=== PATIENT | female | born 1990 | race Caucasian/White ===

== ENCOUNTER 2016-12-04 18:44 | Emergency (ER) | payer MEDICAID ==
[~2016-12-04] VITALS: Ht 154.9 cm; Wt 98.0 kg
[~2016-12-04 18:44] MED LIST: AMOXICILLIN500 M2 PO; AMOXICILLIN500 MG PO; AMOXIL500 MG PO; ANAPROX DS550 MG PO; ATIVAN1 MG PO; AUGMENTIN 875 M1 TAB PO; BACTRIM DS 8001 TA1 PO; CIPRODEX 0.3%-7.5 ML OT; CLEOCIN150 MG PO; EFFEXOR75 MG PO; HYDROCODONE BIT1 T11 PO; IBUPROFEN600 MG PO; IRON325 M1 PO; MIRENA52 MG IU; MOTRIN 600 MG E4 TAB PO; MOTRIN 800 MG E4 TAB PO; MOTRIN800 MG PO; NAPROSYN500 MG PO; NKHM; PHENERGAN12.5 M1 PO; PRENATAL1 TA1 PO; PRENATAL1 TA7 PO; PYRIDIUM200 M1 PO; PYRIDIUM200 MG PO; Peridex 473 ML473 ML PO; TRAMADOL HCL50 MG PO; TYLENOL W/CODEI1 TA2 PO; ZITHROMAX Z PA250 MG PO; ZITHROMAX250 MG PO; ZOFRAN ODT4 MG SL
[2016-12-04] MEDS ORDERED: Peridex 473 ML473 ML PO (19:37)
[2016-12-04] MEDS ORDERED: LIDOCAINE HCL100 M1 MM (19:37)
[2016-12-04] MEDS ORDERED: NAPROSYN500 MG PO (19:37)
== END 2016-12-04 19:31 | disposition home or self-care (01) ==
LOC: ED 18:44
DX: K08.89 Other specified disorders of teeth and supporting structures (principal); R03.0 Elevated blood-pressure reading, without diagnosis of hypertension; F17.200 Nicotine dependence, unspecified, uncomplicated; F32.9 Major depressive disorder, single episode, unspecified; Z88.1 Allergy status to other antibiotic agents

== ENCOUNTER 2016-12-06 23:10 | Emergency (ER) | payer MEDICAID ==
[~2016-12-06] VITALS: Ht 154.9 cm; Wt 98.0 kg
[~2016-12-06 23:10] MED LIST changes: +LIDOCAINE HCL100 M1 MM
[2016-12-07 01:16] LABS: BILIRUBIN NEGATIVE (NEGATIVE); BLOOD NEGATIVE (NEGATIVE); CLARITY SL CLOUDY (CLEAR); COLOR YELLOW (YELLOW); GLUCOSE NEGATIVE (NEGATIVE); KETONE NEGATIVE (NEGATIVE); LEUKO ESTERASE TRACE (NEGATIVE); NITRITE NEGATIVE (NEGATIVE); PH 6.5 (5.0-9.0); PROTEIN NEGATIVE (NEGATIVE); UROBILINOGEN 0.2 E.U./dl (0.2-1.0)
[2016-12-07 01:24] LABS: EPITHELIAL CELLS TNTC
[2016-12-07 01:25] LABS: URINE REFLEX COMMENT YES (NO)
== END 2016-12-07 03:25 | disposition home or self-care (01) ==
LOC: ED 23:10
PROVIDERS: Nurse Practitioner Family
DX: R10.12 Left upper quadrant pain (principal); F17.200 Nicotine dependence, unspecified, uncomplicated; F32.9 Major depressive disorder, single episode, unspecified; Z88.1 Allergy status to other antibiotic agents

== ENCOUNTER → 2017-01-27 | Outpatient (CLI) | payer OTHER ==
[2017-01-27 10:39] LABS: BASO # 0.1 10*3/uL (0.0-0.1); BASO % 0.7 % (0.0-1.0); EOS # 0.3 10*3/uL (0.0-0.4); EOS % 3.7 % (1.0-4.0); HEMATOCRIT 41.5 % (37.0-47.0); HEMOGLOBIN 14.2 g/dl (12.0-16.0); LYMPH # 3.6 10*3/uL (1.3-4.4); LYMPH % 42.5 % (27.0-41.0); MEAN CELL VOLUME 81.5 fl (81.0-99.0); MEAN CORPUSCULAR HGB 27.9 pg (27.0-31.0); MEAN CORPUSCULAR HGB CONC 34.2 g/dl (33.0-37.0); MEAN PLATELET VOLUME 8.4 fl (9.6-12.3); MONO # 0.4 10*3/uL (0.1-1.0); MONO % 4.2 % (3.0-9.0); NEUT # 4.1 10*3/uL (2.3-7.9); NEUT % 48.7 % (47.0-73.0); PLATELET COUNT AUTOMATED 388 10*3/uL (130-400); RED BLOOD COUNT 5.09 10*6/uL (4.10-5.10); RED CELL DISTRI WIDTH 12.5 % (0-14.5); WHITE BLOOD COUNT 8.5 10*3/uL (4.8-10.8)
[2017-01-27 10:57] LABS: HEMOGLOBIN A1c 5.4 % (4.8-5.6)
[2017-01-27 11:14] LABS: ALBUMIN 3.7 gm/dl (3.1-4.5); BILIRUBIN, TOTAL 0.2 mg/dl (0.2-1.0); BUN 12 mg/dl (7-24); CARBON DIOXIDE 25 mmol/L (21-32); CHLORIDE 106 mmol/L (98-107); CHOLESTEROL 177 mg/dL (<200); EST GLOM FILT AFRICAN AMERICAN > 60 ml/min; GLUCOSE 99 mg/dL (65-99); HDL CHOLESTEROL 40 mg/dl (40-60); LDL CHOLESTEROL 95 mg/dL (9-159); POTASSIUM 4.2 mmol/L (3.5-5.1); SGOT/AST 20 IU/L (3-35); SGPT/ALT 47 U/L (12-78); SODIUM 140 mmol/L (136-145); TOTAL PROTEIN 7.8 gm/dL (6.4-8.2); TRIGLYCERIDES 212 mg/dl (<150); VLDL CHOLESTEROL 42 mg/dL (6-40)
[2017-01-27 11:16] LABS: ALKALINE PHOSPHATASE 64 U/L (45-117)
== END | disposition home or self-care (01) ==
LOC: LAB 10:24
PROVIDERS: Family Medicine
DX: R73.9 Hyperglycemia, unspecified (principal); Z68.41 Body mass index [BMI] 40.0-44.9, adult

== ENCOUNTER 2017-03-24 13:11 | Emergency (ER) | payer OTHER ==
[~2017-03-24] VITALS: Ht 154.9 cm; Wt 104.3 kg
[2017-03-24] MEDS ORDERED: CORTISONE + COO28 GM TP (14:21)
[2017-03-24] MEDS ORDERED: BENADRYL ALLERG25 M5 PO (14:21)
== END 2017-03-24 14:31 | disposition home or self-care (01) ==
LOC: ED 13:11
DX: L24.0 Irritant contact dermatitis due to detergents (principal); F17.200 Nicotine dependence, unspecified, uncomplicated; Z88.1 Allergy status to other antibiotic agents

== ENCOUNTER 2017-03-30 22:04 | Emergency (ER) | payer OTHER ==
[~2017-03-30] VITALS: Ht 154.9 cm; Wt 99.8 kg
[~2017-03-30 22:04] MED LIST changes: +BENADRYL ALLERG25 M5 PO; +CORTISONE + COO28 GM TP
[2017-03-30] MEDS ORDERED: ATARAX,VISTARIL50 MG PO (23:28)
[2017-03-30] MEDS ORDERED: PREDNISONE20 M1 PO (23:31)
== END 2017-03-30 23:59 | disposition home or self-care (01) ==
LOC: ED 22:04
DX: L50.9 Urticaria, unspecified (principal); F17.200 Nicotine dependence, unspecified, uncomplicated; F32.9 Major depressive disorder, single episode, unspecified; Z88.1 Allergy status to other antibiotic agents

== ENCOUNTER → 2017-05-01 | Outpatient (CLI) | payer OTHER ==
[~2017-05-01] MED LIST changes: +ATARAX,VISTARIL50 MG PO; +PREDNISONE20 M1 PO
[2017-05-01 12:40] LABS: BILIRUBIN NEGATIVE (NEGATIVE); BLOOD NEGATIVE (NEGATIVE); CLARITY CLEAR (CLEAR); COLOR YELLOW (YELLOW); GLUCOSE NEGATIVE (NEGATIVE); KETONE NEGATIVE (NEGATIVE); LEUKO ESTERASE NEGATIVE (NEGATIVE); NITRITE NEGATIVE (NEGATIVE); PROTEIN NEGATIVE (NEGATIVE); SPECIFIC GRAVITY 1.015 (1.005-1.030); UROBILINOGEN 0.2 E.U./dl (0.2-1.0)
[2017-05-01 12:45] LABS: BACTERIA TRACE; RBC 0-2 rbc/hpf (0-2); WBC 0-2 wbc/hpf (0-5)
[2017-05-01 12:46] LABS: URINE REFLEX COMMENT NO (NO)
[2017-05-01 12:48] LABS: INTERNATIONAL NORM RATIO 0.9 (2.0-3.5)
[2017-05-01 12:50] LABS: ALBUMIN 3.5 gm/dl (3.1-4.5); ALKALINE PHOSPHATASE 63 U/L (45-117); BILIRUBIN, TOTAL 0.2 mg/dl (0.2-1.0); BUN 12 mg/dl (7-24); CARBON DIOXIDE 26 mmol/L (21-32); CHLORIDE 104 mmol/L (98-107); EST GLOM FILT AFRICAN AMERICAN > 60 ml/min; GLUCOSE 144 mg/dL (65-99); POTASSIUM 3.6 mmol/L (3.5-5.1); SGOT/AST 18 IU/L (3-35); SGPT/ALT 42 U/L (12-78); SODIUM 143 mmol/L (136-145); TOTAL PROTEIN 7.6 gm/dL (6.4-8.2)
[2017-05-01 12:51] LABS: BASO % 0.4 % (0.0-1.0); EOS # 0.2 10*3/uL (0.0-0.4); HEMOGLOBIN 13.9 g/dl (12.0-16.0); LYMPH # 2.1 10*3/uL (1.3-4.4); LYMPH % 29.6 % (27.0-41.0); MEAN CELL VOLUME 81.8 fl (81.0-99.0); MEAN CORPUSCULAR HGB 27.7 pg (27.0-31.0); MEAN CORPUSCULAR HGB CONC 33.9 g/dl (33.0-37.0); MEAN PLATELET VOLUME 8.4 fl (9.6-12.3); MONO # 0.3 10*3/uL (0.1-1.0); MONO % 3.9 % (3.0-9.0); NEUT # 4.5 10*3/uL (2.3-7.9); NEUT % 62.7 % (47.0-73.0); PLATELET COUNT AUTOMATED 412 10*3/uL (130-400); RED BLOOD COUNT 5.01 10*6/uL (4.10-5.10); RED CELL DISTRI WIDTH 12.9 % (0-14.5); WHITE BLOOD COUNT 7.2 10*3/uL (4.8-10.8)
[2017-05-03 16:07] LABS: FACTOR X ACTIVITY 086306 150 % (76-183); FACTOR XI ACTIVITY 50 % (60-150); FACTOR XII ACTIVITY 086322 80 % (50-150); VON WILLEBRAND FACTOR AG 101 % (50-200)
[2017-05-03 17:09] LABS: INTERPRETIVE NOTE Note (.)
== END | disposition home or self-care (01) ==
LOC: LAB 11:05
PROVIDERS: Family Medicine
DX: Z01.818 Encounter for other preprocedural examination (principal); Z86.2 Personal history of diseases of the blood and blood-forming organs and certain disorders involving the immune mechanism; Z87.891 Personal history of nicotine dependence

== ENCOUNTER → 2017-05-27 | Outpatient (CLI) | payer OTHER | END | disposition home or self-care (01) | LOC: LAB 13:29 | PROVIDERS: Internal Medicine Hematology & Oncology | DX: R05 Cough (principal); D68.1 Hereditary factor XI deficiency; D66 Hereditary factor VIII deficiency; D68.62 Lupus anticoagulant syndrome; F17.200 Nicotine dependence, unspecified, uncomplicated ==

== ENCOUNTER → 2017-05-28 | Outpatient (CLI) | payer OTHER ==
[2017-05-28 15:26] LABS: INTERNATIONAL NORM RATIO 0.9 (2.0-3.5)
== END | disposition home or self-care (01) ==
LOC: LAB 03:03
PROVIDERS: Internal Medicine Hematology & Oncology
DX: D68.1 Hereditary factor XI deficiency (principal); D68.62 Lupus anticoagulant syndrome

== ENCOUNTER → 2017-07-25 | Outpatient (CLI) | payer OTHER ==
[2017-07-28 17:10] LABS: FACTOR XI ACTIVITY 49 % (60-150); LUPUS DRVVT 62.3 sec (0.0-47.0); PTT-LA 56.3 sec (0.0-51.9)
== END | disposition home or self-care (01) ==
LOC: LAB 15:52
PROVIDERS: Internal Medicine Hematology & Oncology
DX: D69.9 Hemorrhagic condition, unspecified (principal)

== ENCOUNTER 2017-08-03 09:07 | Emergency (ER) | payer OTHER ==
[~2017-08-03] VITALS: Ht 154.9 cm; Wt 102.1 kg
[2017-08-03 09:59] LABS: BASO # 0.1 10*3/uL (0.0-0.1); BASO % 0.8 % (0.0-1.0); EOS # 0.3 10*3/uL (0.0-0.4); EOS % 4.7 % (1.0-4.0); HEMATOCRIT 40.2 % (37.0-47.0); HEMOGLOBIN 13.4 g/dl (12.0-16.0); LYMPH # 1.6 10*3/uL (1.3-4.4); LYMPH % 24.9 % (27.0-41.0); MEAN CELL VOLUME 82.4 fl (81.0-99.0); MEAN CORPUSCULAR HGB 27.5 pg (27.0-31.0); MEAN CORPUSCULAR HGB CONC 33.3 g/dl (33.0-37.0); MEAN PLATELET VOLUME 8.2 fl (9.6-12.3); MONO # 0.4 10*3/uL (0.1-1.0); MONO % 6.1 % (3.0-9.0); NEUT # 4.2 10*3/uL (2.3-7.9); NEUT % 63.2 % (47.0-73.0); PLATELET COUNT AUTOMATED 362 10*3/uL (130-400); RED BLOOD COUNT 4.88 10*6/uL (4.10-5.10); RED CELL DISTRI WIDTH 12.8 % (0-14.5); WHITE BLOOD COUNT 6.6 10*3/uL (4.8-10.8)
[2017-08-03 10:14] LABS: ALBUMIN 3.3 gm/dl (3.1-4.5); ALKALINE PHOSPHATASE 69 U/L (45-117); BUN 11 mg/dl (7-24); CHLORIDE 103 mmol/L (98-107); CREATININE 0.77 mg/dL (0.55-1.02); LIPASE 89 U/L (73-393); POTASSIUM 4.3 mmol/L (3.5-5.1); SGOT/AST 19 IU/L (3-35); SGPT/ALT 42 U/L (12-78); SODIUM 139 mmol/L (136-145); TOTAL PROTEIN 7.6 gm/dL (6.4-8.2)
[2017-08-03 10:19] LABS: BETA-HCG, QUANT < 1.0 mIU/mL (1-3)
[2017-08-03 10:19] LABS: BILIRUBIN NEGATIVE (NEGATIVE); BLOOD NEGATIVE (NEGATIVE); CLARITY CLEAR (CLEAR); COLOR YELLOW (YELLOW); GLUCOSE NEGATIVE (NEGATIVE); KETONE NEGATIVE (NEGATIVE); LEUKO ESTERASE NEGATIVE (NEGATIVE); NITRITE NEGATIVE (NEGATIVE); UROBILINOGEN 0.2 E.U./dl (0.2-1.0)
[2017-08-03 10:26] LABS: BACTERIA 1+; WBC 0-2 wbc/hpf (0-5)
[2017-08-03] MEDS ORDERED: IBUPROFEN600 MG PO (10:50)
== END 2017-08-03 11:11 | disposition home or self-care (01) ==
LOC: ED 09:07
PROVIDERS: Physician Assistant
DX: R10.32 Left lower quadrant pain (principal); R11.0 Nausea; F17.200 Nicotine dependence, unspecified, uncomplicated; Z88.1 Allergy status to other antibiotic agents

== ENCOUNTER → 2017-08-04 | Outpatient (CLI) | payer OTHER | END | disposition home or self-care (01) | LOC: US 08-03 11:30 | DX: N83.202 Unspecified ovarian cyst, left side (principal) ==

== ENCOUNTER → 2017-08-05 | Outpatient (CLI) | payer OTHER ==
[2017-08-05 16:52] LABS: FREE T4 0.98 ng/dl (0.76-1.46)
[2017-08-05 16:57] LABS: THYROID STIM HORMONE (HS) 1.09 uIU/ml (0.358-4.75)
== END | disposition home or self-care (01) ==
LOC: LAB 15:38
PROVIDERS: Specialist
DX: L60.3 Nail dystrophy (principal)

== ENCOUNTER → 2017-09-25 | Outpatient (CLI) | payer OTHER | END | disposition home or self-care (01) | LOC: US 15:00 | DX: M54.9 Dorsalgia, unspecified (principal); Z97.5 Presence of (intrauterine) contraceptive device ==

== ENCOUNTER 2018-01-02 13:41 | Emergency (ER) | payer OTHER ==
[~2018-01-02] VITALS: Ht 154.9 cm; Wt 105.7 kg
== END 2018-01-02 15:45 | disposition home or self-care (01) ==
LOC: ED 13:41
DX: S01.452A Open bite of left cheek and temporomandibular area, initial encounter (principal); F17.200 Nicotine dependence, unspecified, uncomplicated; Z88.1 Allergy status to other antibiotic agents; W54.0XXA Bitten by dog, initial encounter; Y93.89 Activity, other specified; Y92.89 Other specified places as the place of occurrence of the external cause; Y99.9 Unspecified external cause status

== ENCOUNTER 2018-01-15 02:01 | Emergency (ER) | payer OTHER ==
[~2018-01-15] VITALS: Ht 154.9 cm; Wt 104.3 kg
[2018-01-15] MEDS ORDERED: BENADRYL ALLERG25 M5 PO (02:08)
== END 2018-01-15 02:22 | disposition home or self-care (01) ==
LOC: ED 02:01
DX: T78.40XA Allergy, unspecified, initial encounter (principal); Z88.1 Allergy status to other antibiotic agents; X58.XXXA Exposure to other specified factors, initial encounter

== ENCOUNTER 2018-06-17 01:35 | Emergency (ER) | payer OTHER ==
[~2018-06-17] VITALS: Ht 154.9 cm; Wt 104.3 kg
[2018-06-17] MEDS ORDERED: Motrin,Rufen800 MG PO (22:39)
== END 2018-06-17 03:25 | disposition home or self-care (01) ==
LOC: ED 01:35
DX: M25.571 Pain in right ankle and joints of right foot (principal); M79.671 Pain in right foot; Z88.1 Allergy status to other antibiotic agents; X50.1XXA Overexertion from prolonged static or awkward postures, initial encounter; Y93.89 Activity, other specified; Y92.89 Other specified places as the place of occurrence of the external cause; Y99.8 Other external cause status

== ENCOUNTER 2018-06-17 22:20 | Emergency (ER) | payer OTHER ==
[~2018-06-17] VITALS: Ht 154.9 cm; Wt 108.9 kg
[2018-06-17] MEDS ORDERED: Motrin,Rufen800 MG PO (22:39)
== END 2018-06-17 22:54 | disposition home or self-care (01) ==
LOC: ED 22:20
DX: S93.402A Sprain of unspecified ligament of left ankle, initial encounter (principal); Z88.8 Allergy status to other drugs, medicaments and biological substances; W19.XXXA Unspecified fall, initial encounter; Y93.89 Activity, other specified; Y92.89 Other specified places as the place of occurrence of the external cause; Y99.8 Other external cause status

== ENCOUNTER → 2019-06-25 | Outpatient (CLI) | payer OTHER ==
[~2019-06-25] MED LIST changes: +CLASSIC PRENAT1 EACH PO; +Motrin,Rufen800 MG PO; +PROVENTIL HFA6.7 GM INH
== END | disposition home or self-care (01) ==
LOC: US 15:00
DX: Z34.82 Encounter for supervision of other normal pregnancy, second trimester (principal); Z3A.19 19 weeks gestation of pregnancy

== ENCOUNTER → 2019-07-08 | Outpatient (CLI) | payer OTHER | END | disposition home or self-care (01) | LOC: LAB 08:32 | DX: O99.112 Other diseases of the blood and blood-forming organs and certain disorders involving the immune mechanism complicating pregnancy, second trimester (principal); D68.1 Hereditary factor XI deficiency; Z3A.21 21 weeks gestation of pregnancy ==

== ENCOUNTER 2019-07-15 12:39 | Emergency (ER) | payer OTHER ==
[~2019-07-15] VITALS: Wt 102.5 kg
--- NOTE | ~2019-07-15 | EKG ---
[place], [place] ELECTROCARDIOGRAM REPORT NAME: YVON GREEN UNIT #: [id number] ROOM: DOCTOR: EPIPHANY DRAFT REPORT BIRTHDATE: [birth year] [facility] Test Date: 2019-07-15 Test Time: 12:47:06 Pat Name: YVON GREEN Department: Room: Gender: F [employer]: : 1990 Requested By: ARI CHAMORRO Order Number: [id number] Reading MD: Angeles Cortez MD Measurements Intervals [place] Rate: 88 P: 27 AK: 193 QRS: 27 QRSD: 87 T: 21 QT: 321 QTc: 389 Interpretive Statements Sinus rhythm Atrial premature complex No previous ECG available for comparison Electronically Signed On 07-18-2019 7:43:12 PDT by Angeles Cortez MD CM:EKGRPT:ELECTROCARDIOGRAM REPORT [id number] ARI EVRONICA DRAFT REPORT ARI CHAMORRO M.D.
[~2019-07-15 12:39] MED LIST changes: -CLASSIC PRENAT1 EACH PO; -PROVENTIL HFA6.7 GM INH
[2019-07-15 13:16] LABS: BASO % 0.3 % (0.0-1.0); EOS # 0.2 10*3/uL (0.0-0.4); EOS % 1.9 % (1.0-4.0); HEMATOCRIT 33.9 % (37.0-47.0); HEMOGLOBIN 11.4 g/dl (12.0-16.0); LYMPH # 1.8 10*3/uL (1.3-4.4); MEAN CELL VOLUME 82.3 fl (81.0-99.0); MEAN CORPUSCULAR HGB 27.7 pg (27.0-31.0); MEAN CORPUSCULAR HGB CONC 33.6 g/dl (33.0-37.0); MEAN PLATELET VOLUME 8.6 fl (9.6-12.3); MONO # 0.5 10*3/uL (0.1-1.0); NEUT # 8.1 10*3/uL (2.3-7.9); NEUT % 75.3 % (47.0-73.0); PLATELET COUNT AUTOMATED 318 10*3/uL (130-400); RED BLOOD COUNT 4.12 10*6/uL (4.10-5.10); RED CELL DISTRI WIDTH 13.1 % (0-14.5); WHITE BLOOD COUNT 10.7 10*3/uL (4.8-10.8)
[2019-07-15] MEDS ORDERED: CLASSIC PRENAT1 EACH PO (13:26)
[2019-07-15 13:31] LABS: ACT PARTIAL THROMBO TIME 31.6 SECONDS (20.0-32.1); INTERNATIONAL NORM RATIO 0.9 (2.0-3.5)
[2019-07-15 13:34] LABS: ALBUMIN 2.6 gm/dl (3.1-4.5); ALKALINE PHOSPHATASE 64 U/L (45-117); BUN 4 mg/dl (7-24); CHLORIDE 106 mmol/L (98-107); CREATININE 0.45 mg/dL (0.55-1.02); POTASSIUM 3.8 mmol/L (3.5-5.1); SGOT/AST 6 IU/L (3-35); SGPT/ALT 13 U/L (12-78); SODIUM 134 mmol/L (136-145); TOTAL PROTEIN 6.8 gm/dL (6.4-8.2)
[2019-07-15 13:40] LABS: TROPONIN I < 0.015 ng/ml (<0.045)
[2019-07-15 14:36] LABS: BILIRUBIN NEGATIVE (NEGATIVE); BLOOD 1+ (NEGATIVE); CLARITY CLEAR (CLEAR); COLOR YELLOW (YELLOW); GLUCOSE NEGATIVE (NEGATIVE); KETONE NEGATIVE (NEGATIVE); LEUKO ESTERASE NEGATIVE (NEGATIVE); NITRITE NEGATIVE (NEGATIVE); PH 7.5 (5.0-9.0); UROBILINOGEN 0.2 E.U./dl (0.2-1.0)
[2019-07-15 14:53] LABS: BACTERIA TRACE; WBC 0-2 wbc/hpf (0-5)
[2019-07-15] MEDS ORDERED: PROVENTIL HFA6.7 GM INH (17:22)
[2019-07-15] MEDS ORDERED: AMOXICILLIN500 M2 PO (17:53)
== END 2019-07-15 17:29 | disposition home or self-care (01) ==
LOC: ED 12:39
PROVIDERS: Emergency Medicine
DX: O99.512 Diseases of the respiratory system complicating pregnancy, second trimester (principal); O21.9 Vomiting of pregnancy, unspecified; J45.909 Unspecified asthma, uncomplicated; Z3A.22 22 weeks gestation of pregnancy; Z79.899 Other long term (current) drug therapy; Z88.1 Allergy status to other antibiotic agents

== ENCOUNTER → 2019-07-19 | Outpatient (CLI) | payer OTHER ==
[~2019-07-19] MED LIST changes: +CLASSIC PRENAT1 EACH PO; +PROVENTIL HFA6.7 GM INH
== END | disposition home or self-care (01) ==
LOC: US 01:09
DX: Z34.82 Encounter for supervision of other normal pregnancy, second trimester (principal); Z3A.21 21 weeks gestation of pregnancy

== ENCOUNTER → 2019-08-20 | Outpatient (CLI) | payer OTHER | END | disposition home or self-care (01) | LOC: D 10:22 | DX: O24.419 Gestational diabetes mellitus in pregnancy, unspecified control (principal); Z3A.28 28 weeks gestation of pregnancy ==

== ENCOUNTER → 2019-10-19 | Outpatient (CLI) | payer OTHER ==
[2019-10-19 14:07] LABS: BILIRUBIN NEGATIVE (NEGATIVE); BLOOD NEGATIVE (NEGATIVE); CLARITY SL CLOUDY (CLEAR); COLOR YELLOW (YELLOW); GLUCOSE NEGATIVE (NEGATIVE); KETONE NEGATIVE (NEGATIVE); LEUKO ESTERASE NEGATIVE (NEGATIVE); NITRITE NEGATIVE (NEGATIVE); UROBILINOGEN 0.2 E.U./dl (0.2-1.0)
[2019-10-19 14:15] LABS: URINE AMPHETAMINES < 1000 (1000ng/ml); URINE BARBITURATES < 200 (200ng/ml); URINE BENZODIAZEPINES < 200 (200ng/ml); URINE CANNABINOIDS (THC) > 50 (50ng/ml); URINE COCAINE < 300 (300ng/ml); URINE METHADONE < 300 (300ng/ml); URINE OPIATES < 300 (300ng/ml)
[2019-10-19 14:16] LABS: URINE PHENCYCLIDINE < 25 (25ng/ml)
[2019-10-19 14:18] LABS: EPITHELIAL CELLS 16-20
[2019-10-19 14:26] LABS: BASO % 0.4 % (0.0-1.0); EOS # 0.1 10*3/uL (0.0-0.4); EOS % 0.9 % (1.0-4.0); HEMATOCRIT 39.1 % (37.0-47.0); HEMOGLOBIN 12.9 g/dl (12.0-16.0); LYMPH # 2.4 10*3/uL (1.3-4.4); LYMPH % 24.7 % (27.0-41.0); MEAN CELL VOLUME 81.3 fl (81.0-99.0); MEAN CORPUSCULAR HGB 26.8 pg (27.0-31.0); MEAN PLATELET VOLUME 9.1 fl (9.6-12.3); MONO # 0.3 10*3/uL (0.1-1.0); MONO % 3.4 % (3.0-9.0); NEUT # 6.7 10*3/uL (2.3-7.9); PLATELET COUNT AUTOMATED 325 10*3/uL (130-400); RED BLOOD COUNT 4.81 10*6/uL (4.10-5.10); RED CELL DISTRI WIDTH 14.5 % (0-14.5); WHITE BLOOD COUNT 9.6 10*3/uL (4.8-10.8)
[2019-10-19 14:40] LABS: ALBUMIN 2.5 gm/dl (3.1-4.5); ALKALINE PHOSPHATASE 113 U/L (45-117); BUN 8 mg/dl (7-24); CHLORIDE 108 mmol/L (98-107); POTASSIUM 4.3 mmol/L (3.5-5.1); SGOT/AST 14 IU/L (3-35); SGPT/ALT 16 U/L (12-78); SODIUM 138 mmol/L (136-145); TOTAL PROTEIN 6.9 gm/dL (6.4-8.2); URIC ACID 4.6 mg/dL (2.6-6.0)
[2019-10-19 14:53] LABS: ACT PARTIAL THROMBO TIME 31.4 SECONDS (20.0-32.1); INTERNATIONAL NORM RATIO 0.9 (2.0-3.5)
== END | disposition home or self-care (01) ==
LOC: LAB 13:33
PROVIDERS: Obstetrics & Gynecology Maternal & Fetal Medicine
DX: O16.3 Unspecified maternal hypertension, third trimester (principal); Z3A.36 36 weeks gestation of pregnancy

== ENCOUNTER → 2020-06-12 | Outpatient (CLI) | payer OTHER ==
[2020-06-15 03:09] LABS: DILUTE PROTHROMBIN TIME 34.5 sec (0.0-55.0); LUPUS DRVVT 45.1 sec (0.0-47.0); PTT-LA 45.6 sec (0.0-51.9); THROMBIN TIME 15.7 sec (0.0-23.0)
[2020-06-15 04:11] LABS: LUPUS REFLEX INTERPRETATION Comment: (.)
== END | disposition home or self-care (01) ==
LOC: LAB 08:14
PROVIDERS: Obstetrics & Gynecology
DX: O24.419 Gestational diabetes mellitus in pregnancy, unspecified control (principal); O99.119 Other diseases of the blood and blood-forming organs and certain disorders involving the immune mechanism complicating pregnancy, unspecified trimester; O26.899 Other specified pregnancy related conditions, unspecified trimester; D68.1 Hereditary factor XI deficiency; D68.62 Lupus anticoagulant syndrome; Z39.2 Encounter for routine postpartum follow-up; Z3A.00 Weeks of gestation of pregnancy not specified

== ENCOUNTER 2020-06-17 13:51 | Emergency (ER) | payer OTHER ==
[2020-06-17 14:44] LABS: BILIRUBIN NEGATIVE (NEGATIVE); BLOOD NEGATIVE (NEGATIVE); CLARITY CLEAR (CLEAR); COLOR YELLOW (YELLOW); GLUCOSE NEGATIVE (NEGATIVE); KETONE NEGATIVE (NEGATIVE); LEUKO ESTERASE NEGATIVE (NEGATIVE); NITRITE NEGATIVE (NEGATIVE); PH 6.5 (5.0-9.0); SPECIFIC GRAVITY 1.015 (1.005-1.030); UROBILINOGEN 0.2 E.U./dl (0.2-1.0)
[2020-06-17 14:45] LABS: BACTERIA 1+; EPITHELIAL CELLS 31-40
[2020-06-17] MEDS ORDERED: NAPROSYN500 MG PO (15:01)
[2020-06-17] MEDS ORDERED: METHOCARBAMOL500 M1 PO (15:01)
[2020-06-17] MEDS ORDERED: MEDROL DOSEPAK4 MG PO (15:01)
== END 2020-06-17 15:41 | disposition home or self-care (01) ==
LOC: ED 13:51
PROVIDERS: Nurse Practitioner Family
DX: S39.012A Strain of muscle, fascia and tendon of lower back, initial encounter (principal); I10 Essential (primary) hypertension; F32.9 Major depressive disorder, single episode, unspecified; Z88.8 Allergy status to other drugs, medicaments and biological substances; Z79.899 Other long term (current) drug therapy; X58.XXXA Exposure to other specified factors, initial encounter; Y93.89 Activity, other specified; Y92.89 Other specified places as the place of occurrence of the external cause; Y99.8 Other external cause status

== ENCOUNTER → 2020-08-10 | Outpatient (CLI) | payer OTHER ==
[~2020-08-10] MED LIST changes: +MEDROL DOSEPAK4 MG PO; +METHOCARBAMOL500 M1 PO
== END | disposition home or self-care (01) ==
LOC: COVID19 00:06
PROVIDERS: ATTEND Obstetrics & Gynecology
DX: Z20.828 Contact with and (suspected) exposure to other viral communicable diseases (principal); Z30.2 Encounter for sterilization

== ENCOUNTER → 2020-08-22 | Day surgery (SDC) | payer OTHER ==
[2020-08-10 15:03] VITALS: BP 126/87
[~2020-08-22] VITALS: Ht 154.9 cm; Wt 99.3 kg
== END | disposition home or self-care (01) ==
LOC: SDC 08-10 12:30
PROVIDERS: ATTEND Obstetrics & Gynecology
DX: Z30.2 Encounter for sterilization (principal); I10 Essential (primary) hypertension; Z63.9 Problem related to primary support group, unspecified; F32.9 Major depressive disorder, single episode, unspecified; Z82.49 Family history of ischemic heart disease and other diseases of the circulatory system; Z87.891 Personal history of nicotine dependence; Z88.8 Allergy status to other drugs, medicaments and biological substances

== ENCOUNTER → 2020-09-07 | Outpatient (CLI) | payer OTHER ==
[~2020-09-07] MED LIST changes: +NORCO 5-325 TA1 EACH PO
== END | disposition home or self-care (01) ==
LOC: COVID19 08-17 01:05
PROVIDERS: ATTEND Obstetrics & Gynecology
DX: Z01.818 Encounter for other preprocedural examination (principal); Z20.828 Contact with and (suspected) exposure to other viral communicable diseases

== ENCOUNTER → 2020-09-12 | Day surgery (SDC) | payer OTHER ==
[~2020-09-12] VITALS: Ht 154.9 cm; Wt 97.5 kg
[2020-09-12 08:27] VITALS: BP 150/92
[2020-09-12 08:42] VITALS: BP 130/83
[2020-09-12 08:57] VITALS: BP 134/84
[2020-09-12 09:12] VITALS: BP 130/81
[2020-09-12 09:27] VITALS: BP 124/76
== END ==
LOC: SDC 09-07 08:00
PROVIDERS: ATTEND Obstetrics & Gynecology
DX: Z30.2 Encounter for sterilization (principal); Z64.1 Problems related to multiparity; G43.909 Migraine, unspecified, not intractable, without status migrainosus; E66.9 Obesity, unspecified; I10 Essential (primary) hypertension; E11.9 Type 2 diabetes mellitus without complications; Z79.899 Other long term (current) drug therapy

== ENCOUNTER 2021-05-31 13:34 | Emergency (ER) | payer OTHER ==
[~2021-05-31] VITALS: Ht 154.9 cm; Wt 102.1 kg
[2021-05-31] MEDS ORDERED: METHOCARBAMOL500 M1 PO (16:37)
[2021-05-31] MEDS ORDERED: PREDNISONE20 M1 PO (16:37)
== END 2021-05-31 16:53 | disposition home or self-care (01) ==
LOC: ED 13:34
DX: M79.602 Pain in left arm (principal); F17.200 Nicotine dependence, unspecified, uncomplicated; Z88.1 Allergy status to other antibiotic agents

== ENCOUNTER 2021-07-05 10:14 | Emergency (ER) | payer OTHER ==
[~2021-07-05] VITALS: Wt 104.3 kg
[2021-07-05 10:47] LABS: BILIRUBIN Negative (Negative); BLOOD Negative (Negative); CLARITY Clear (Clear); COLOR Yellow (Yellow); GLUCOSE Negative (Negative); KETONE Negative (Negative); LEUKO ESTERASE Negative (Negative); NITRITE Negative (Negative); SPECIFIC GRAVITY 1.015 (1.001-1.030)
[2021-07-05 10:57] LABS: BACTERIA 1+; EPITHELIAL CELLS 16-20; RBC 0-2 rbc/hpf (0-2); WBC 0-2 wbc/hpf (0-5)
[2021-07-05] MEDS ORDERED: CYCLOBENZAPRINE5 M3 PO (11:13)
[2021-07-05] MEDS ORDERED: Motrin,Rufen800 MG PO (11:13)
== END 2021-07-05 11:18 | disposition home or self-care (01) ==
LOC: ED 10:14
PROVIDERS: Emergency Medicine
DX: M54.6 Pain in thoracic spine (principal); F17.200 Nicotine dependence, unspecified, uncomplicated; Z88.1 Allergy status to other antibiotic agents

== ENCOUNTER 2023-02-28 21:43 | Emergency (ER) | payer OTHER ==
[~2023-02-28] VITALS: Ht 154.9 cm; Wt 96.6 kg
[~2023-02-28 21:43] MED LIST changes: +CYCLOBENZAPRINE5 M3 PO
[2023-02-28] MEDS ORDERED: PENICILLIN VK500 MG PO (22:36)
== END 2023-02-28 23:04 | disposition home or self-care (01) ==
LOC: ED 21:43
DX: K02.9 Dental caries, unspecified (principal); Z88.1 Allergy status to other antibiotic agents

== ENCOUNTER 2023-04-02 09:10 | Emergency (ER) | payer OTHER ==
[~2023-04-02] VITALS: Ht 154.9 cm; Wt 98.4 kg
[~2023-04-02 09:10] MED LIST changes: +PENICILLIN VK500 MG PO
[2023-04-02] MEDS ORDERED: Motrin,Rufen800 MG PO (09:22)
[2023-04-02] MEDS ORDERED: CLEOCIN HCL150 MG PO (09:22)
== END 2023-04-02 09:32 | disposition home or self-care (01) ==
LOC: ED 09:10
DX: K08.89 Other specified disorders of teeth and supporting structures (principal); F32.A Depression, unspecified; Z88.8 Allergy status to other drugs, medicaments and biological substances; Z98.890 Other specified postprocedural states

== ENCOUNTER 2023-05-09 18:20 | Emergency (ER) | payer OTHER ==
[~2023-05-09] VITALS: Ht 154.9 cm; Wt 96.2 kg
[~2023-05-09 18:20] MED LIST changes: +CLEOCIN HCL150 MG PO
[2023-05-09] MEDS ORDERED: CLINDAMYCIN HC300 MG PO (18:46)
== END 2023-05-09 19:16 | disposition home or self-care (01) ==
LOC: ED 18:20
DX: K02.9 Dental caries, unspecified (principal); Z88.1 Allergy status to other antibiotic agents; Z79.2 Long term (current) use of antibiotics; Z79.899 Other long term (current) drug therapy

== ENCOUNTER → 2023-06-19 | Outpatient (CLI) | payer OTHER ==
[~2023-06-19] MED LIST changes: +CLINDAMYCIN HC300 MG PO
[2023-06-19 11:28] LABS: BASO # 0.1 10*3/uL (0.0-0.1); BASO % 0.9 % (0.0-1.0); EOS # 0.3 10*3/uL (0.0-0.4); EOS % 3.9 % (1.0-4.0); HEMATOCRIT 42.3 % (37.0-47.0); LYMPH # 2.9 10*3/uL (1.3-4.4); LYMPH % 38.7 % (27.0-41.0); MEAN CORPUSCULAR HGB 27.5 pg (27.0-31.0); MEAN CORPUSCULAR HGB CONC 33.6 g/dl (33.0-37.0); MEAN PLATELET VOLUME 8.4 fl (9.6-12.3); MONO # 0.4 10*3/uL (0.1-1.0); MONO % 5.4 % (3.0-9.0); NEUT # 3.8 10*3/uL (2.3-7.9); NEUT % 50.8 % (47.0-73.0); PLATELET COUNT AUTOMATED 377 10*3/uL (130-400); RED BLOOD COUNT 5.16 10*6/uL (4.10-5.10); WHITE BLOOD COUNT 7.4 10*3/uL (4.8-10.8)
[2023-06-21 10:07] LABS: APTT 1:1 NORMAL PLASMA 27.2 sec (22.9-30.2)
[2023-06-22 09:06] LABS: APTT 31.8 sec (22.9-30.2)
== END | disposition home or self-care (01) ==
LOC: LAB 11:09
PROVIDERS: ATTEND Nurse Practitioner Primary Care
DX: D68.1 Hereditary factor XI deficiency (principal)

== ENCOUNTER 2023-07-27 17:51 | Emergency (ER) | payer OTHER ==
[~2023-07-27] VITALS: Ht 154.9 cm; Wt 97.5 kg
[2023-07-27] MEDS ORDERED: CLEOCIN HCL300 MG PO (18:12)
== END 2023-07-27 18:30 | disposition home or self-care (01) ==
LOC: ED 17:51
DX: S02.5XXA Fracture of tooth (traumatic), initial encounter for closed fracture (principal); K02.9 Dental caries, unspecified; F32.A Depression, unspecified; Z88.8 Allergy status to other drugs, medicaments and biological substances; Z98.890 Other specified postprocedural states; X58.XXXA Exposure to other specified factors, initial encounter; Y93.89 Activity, other specified; Y92.89 Other specified places as the place of occurrence of the external cause; Y99.8 Other external cause status

== ENCOUNTER 2023-11-23 13:32 | Emergency (ER) | payer OTHER ==
[~2023-11-23] VITALS: Ht 154.9 cm; Wt 94.3 kg
[~2023-11-23 13:32] MED LIST changes: +CLEOCIN HCL300 MG PO
[2023-11-23] MEDS ORDERED: PREDNISONE50 MG PO (14:12)
== END 2023-11-23 18:01 | disposition home or self-care (01) ==
LOC: ED 13:32
DX: S76.011A Strain of muscle, fascia and tendon of right hip, initial encounter (principal); F32.A Depression, unspecified; Z88.8 Allergy status to other drugs, medicaments and biological substances; Z98.890 Other specified postprocedural states; X58.XXXA Exposure to other specified factors, initial encounter; Y93.89 Activity, other specified; Y92.89 Other specified places as the place of occurrence of the external cause; Y99.0 Civilian activity done for income or pay

== ENCOUNTER 2024-05-27 20:28 | Emergency (ER) | payer OTHER ==
[~2024-05-27] VITALS: Ht 154.9 cm; Wt 88.5 kg
[~2024-05-27 20:28] MED LIST changes: +PREDNISONE50 MG PO
[2024-05-28] MEDS ORDERED: Valacyclovir Hydrochloride 500 MG CAP PO ONE (00:50)
[2024-05-28] MEDS ORDERED: predniSONE 20 MG TAB PO ONE (00:50)
[2024-05-28] MEDS ORDERED: VALTREX1000 MG PO (00:57)
[2024-05-28] MEDS ORDERED: PREDNISONE20 M1 PO (00:57)
== END 2024-05-28 01:07 | disposition home or self-care (01) ==
LOC: ED 20:28
DX: G51.0 Bell's palsy (principal); R51.9 Headache, unspecified; F32.A Depression, unspecified; Z88.8 Allergy status to other drugs, medicaments and biological substances; Z98.890 Other specified postprocedural states

== ENCOUNTER 2024-10-13 12:17 | Emergency (ER) | payer OTHER ==
[~2024-10-13] VITALS: Ht 154.9 cm; Wt 89.4 kg
[~2024-10-13 12:17] MED LIST changes: +VALTREX1000 MG PO
[2024-10-13 13:22] LABS: BILIRUBIN Negative (Negative); BLOOD Negative (Negative); CLARITY Clear (Clear); COLOR Yellow (Yellow); GLUCOSE Negative (Negative); KETONE Negative (Negative); LEUKO ESTERASE Negative (Negative); NITRITE Negative (Negative); PH 6.5 (4.5-8.0)
[2024-10-13 13:32] LABS: BASO # 0.1 10*3/uL (0.0-0.1); EOS # 0.1 10*3/uL (0.0-0.4); EOS % 1.6 % (1.0-4.0); HEMATOCRIT 41.3 % (37.0-47.0); MEAN CELL VOLUME 85.5 fl (81.0-99.0); MEAN CORPUSCULAR HGB 28.6 pg (27.0-31.0); MEAN CORPUSCULAR HGB CONC 33.4 g/dl (33.0-37.0); MEAN PLATELET VOLUME 8.4 fl (9.6-12.3); MONO # 0.5 10*3/uL (0.1-1.0); MONO % 5.9 % (3.0-9.0); NEUT # 4.2 10*3/uL (2.3-7.9); NEUT % 54.6 % (47.0-73.0); PLATELET COUNT AUTOMATED 379 10*3/uL (130-400); RED BLOOD COUNT 4.83 10*6/uL (4.10-5.10); RED CELL DISTRI WIDTH 12.4 % (0-14.5); WHITE BLOOD COUNT 7.7 10*3/uL (4.8-10.8)
[2024-10-13 13:33] LABS: BACTERIA 1+; MUCOUS 1+; RBC 0-2 rbc/hpf (0-2)
[2024-10-13 13:55] LABS: ALKALINE PHOSPHATASE 56 U/L (46-116); BUN 9 mg/dl (9-23); CHLORIDE 106 mmol/L (98-107); LIPASE 27 U/L (12-53); POTASSIUM 4.3 mmol/L (3.4-5.1); SGPT/ALT 17 U/L (5-49); TOTAL PROTEIN 7.4 gm/dL (6.0-8.0)
[2024-10-13] MEDS ORDERED: NAPROSYN500 MG PO (14:16)
== END 2024-10-13 14:40 | disposition home or self-care (01) ==
LOC: ED 12:17
PROVIDERS: Nurse Practitioner Family
DX: R10.32 Left lower quadrant pain (principal); J45.909 Unspecified asthma, uncomplicated; Z88.1 Allergy status to other antibiotic agents

== ENCOUNTER 2025-01-25 15:41 | Emergency (ER) | payer OTHER ==
[~2025-01-25] VITALS: Ht 154.9 cm
[2025-01-25] MEDS ORDERED: MONISTAT 31 EACH V (16:40)
== END 2025-01-25 16:49 | disposition home or self-care (01) ==
LOC: ED 15:41
DX: B37.31 Acute candidiasis of vulva and vagina (principal); J45.909 Unspecified asthma, uncomplicated; F32.A Depression, unspecified; F17.200 Nicotine dependence, unspecified, uncomplicated; Z88.8 Allergy status to other drugs, medicaments and biological substances; Z98.890 Other specified postprocedural states

== ENCOUNTER 2025-05-09 16:17 | Emergency (ER) | payer OTHER ==
[~2025-05-09] VITALS: Ht 154.9 cm; Wt 90.7 kg
[~2025-05-09 16:17] MED LIST changes: +MONISTAT 31 EACH V
[2025-05-09 16:50] LABS: BASO # 0.1 10*3/uL (0.0-0.1); BASO % 0.8 % (0.0-1.0); EOS # 0.3 10*3/uL (0.0-0.4); EOS % 4.5 % (1.0-4.0); HEMATOCRIT 40.3 % (37.0-47.0); MEAN CORPUSCULAR HGB 28.7 pg (27.0-31.0); MEAN CORPUSCULAR HGB CONC 33.7 g/dl (33.0-37.0); MEAN PLATELET VOLUME 8.3 fl (9.6-12.3); MONO # 0.5 10*3/uL (0.1-1.0); MONO % 6.9 % (3.0-9.0); NEUT % 56.7 % (47.0-73.0); PLATELET COUNT AUTOMATED 349 10*3/uL (130-400); RED BLOOD COUNT 4.74 10*6/uL (4.10-5.10); RED CELL DISTRI WIDTH 12.6 % (0-14.5); WHITE BLOOD COUNT 7.1 10*3/uL (4.8-10.8)
[2025-05-09 17:20] LABS: ALKALINE PHOSPHATASE 56 U/L (46-116); BUN 8 mg/dl (9-23); CHLORIDE 107 mmol/L (98-107); SGPT/ALT 23 U/L (5-49); TOTAL PROTEIN 7.4 gm/dL (6.0-8.0)
== END 2025-05-09 18:39 | disposition home or self-care (01) ==
LOC: ED 16:17
PROVIDERS: Nurse Practitioner Family
DX: R22.0 Localized swelling, mass and lump, head (principal); Z79.899 Other long term (current) drug therapy; Z88.8 Allergy status to other drugs, medicaments and biological substances; F32.A Depression, unspecified